=== PATIENT | male | born 1975 ===

== ENCOUNTER 2017-07-17 19:47 | Emergency (ER) | payer SELFPAY ==
[2017-07-17 20:47] VITALS: RESP 18
[2017-07-17] MEDS ORDERED: Sodium Chloride 0.9% 1,000 ML IV ONE (20:53)
[2017-07-17 21:08] LABS: CHLORIDE 101 mmol/L (98-107); POTASSIUM 3.8 mmol/L (3.6-5.2); SODIUM 139 mmol/L (132-148)
[2017-07-17 21:10] LABS: GFR AFRICAN-AMERICAN > 60
[2017-07-17 21:11] LABS: ALB/GLOB RATIO 1.3 (1.0-2.1); ALKALINE PHOSPHATASE 99 U/L (38-126); ALT/SGPT 41 U/L (21-72); AST/SGOT 20 U/L (17-59); BLOOD UREA NITROGEN 13 mg/dL (9-20); CALCIUM 8.9 mg/dl (8.6-10.4); CARBON DIOXIDE 26 mmol/L (22-30); GLUCOSE,RANDOM 83 mg/dL (75-110); TOTAL PROTEIN 7.2 g/dL (6.3-8.3)
[2017-07-17 21:13] LABS: BASO % 0.3 % (0.0-2.0); EOS # 0.1 K/uL (0.0-0.7); EOS % 0.6 % (0.0-4.0); LYMPH # 1.4 K/uL (1.0-4.3); LYMPH % 9.6 % (20.0-40.0); MEAN CELL VOLUME 85.8 fL (80.0-94.0); MEAN CORPUSCULAR HEMOGLOBIN 29.2 pg (27.0-31.0); MEAN PLATELET VOLUME 8.1 fL (7.2-11.7); MONO # 0.9 K/uL (0.0-0.8); PLATELET COUNT 228 K/uL (130-400); RED CELL DISTRIBUTION WIDTH 12.6 % (11.5-14.5); WHITE BLOOD COUNT 14.3 K/uL (4.8-10.8)
--- NOTE | 2017-07-17 21:37 | C.PDOC ---
History Of Present Illness Patient presents with complaints of intermittent left lower quadrant pain described as sharp and stabbing that has worsened today. Patient states pain is non-radiating and denies nausea, vomiting, diarrhea, fever, or chills. Time Seen by Provider: 07/17/17 21:12 Chief Complaint (Nursing): Abdominal Pain History Per: Patient History/Exam Limitations: no limitations Onset/Duration Of Symptoms: Intermittent Episodes, Worse Since (today) Current Symptoms Are (Timing): Still Present Severity: Moderate Pain Scale Rating Of: 4 Location Of Pain/Discomfort: LLQ Radiation Of Pain To:: None Quality Of Discomfort: Sharp, Stabbing, "Pain" Associated Symptoms: denies: Fever, Chills, Nausea, Vomiting, Diarrhea Exacerbating Factors: None Alleviating Factors: None Last Bowel Movement: Yesterday Recent travel outside of the [place]: No Additional History Per: Patient Past Medical History Reviewed: Historical Data, Nursing Documentation, Vital Signs Vital Signs: Last Vital Signs Temp 98.5 F 07/17/17 20:45 Pulse 75 07/17/17 21:50 Resp 18 07/17/17 21:50 BP 116/75 07/17/17 21:50 Pulse Ox 99 07/17/17 21:50 Family History: States: Unknown Family Hx - Social History Hx Alcohol Use: Yes Hx Substance Use: No Review Of Systems Constitutional: Negative for: Fever, Chills Cardiovascular: Negative for: Chest Pain, Palpitations Respiratory: Negative for: Shortness of Breath Gastrointestinal: Positive for: Abdominal Pain (LLQ pain ). Negative for: Nausea, Vomiting, Diarrhea Musculoskeletal: Negative for: Back Pain Skin: Negative for: Rash Neurological: Negative for: Weakness Psych: Negative for: Anxiety Physical Exam - Physical Exam Appears: Non-toxic, No Acute Distress Skin: Warm, Dry Head: Normacephalic Eye(s): bilateral: Normal Inspection Oral Mucosa: Moist Neck: Trachea Midline, Supple Chest: Symmetrical, No Deformity Cardiovascular: Rhythm Regular Respiratory: No Rales, No Rhonchi, No Wheezing Gastrointestinal/Abdominal: Soft, Tenderness (LLQ tenderness ), No Distention, No Guarding, No Rebound Back: No CVA Tenderness Extremity: No Tenderness Extremity: Bilateral: Atraumatic, Normal Color And Temperature, Normal ROM Pulses: Left Dorsalis Pedis: Normal, Right Dorsalis Pedis: Normal Neurological/Psych: Oriented x3, Normal Speech, Normal Cognition Gait: Steady ED Course And Treatment - Laboratory Results Result Diagrams: 07/17/17 20:57 07/17/17 20:57 O2 Sat by Pulse Oximetry: 99 (room air ) Pulse Ox Interpretation: Normal Medical Decision Making Medical Decision Making: Upon provider reevaluation patient is feeling better, is medically stable, and requires no further treatment in the ED at this time. Patient will be discharged home with Rx for flagyl and cipro. Counseling was provided and all questions were answered regarding diagnosis and need for follow up with the referred clinic. There is agreement to discharge plan. Return if symptoms persist or worsen. Disposition Counseled Patient/Family Regarding: Studies Performed, Diagnosis, Need For Followup, Rx Given - Disposition Referrals: [facility] [Outside] [facility] [Outside] Ivan Braun MD [Staff Provider] - Disposition: HOME/ ROUTINE Disposition Time: 23:23 Condition: FAIR Prescriptions: Ciprofloxacin [Cipro] 1 tab PO BID #14 tab Metronidazole [Flagyl] 500 mg PO TID #21 tablet Instructions: Diverticulitis (DC) Forms: [employer] ([place] Islander) Print Language: TURKMEN - Clinical Impression Clinical Impression: Abdominal pain, Acute diverticulitis - Scribe Statement The provider has reviewed the documentation as recorded by the Scribrahel Murrell All medical record entries made by the Shantelibrahel were at my direction and personally dictated by me. I have reviewed the chart and agree that the record accurately reflects my personal performance of the history, physical exam, medical decision making, and the department course for this patient. I have also personally directed, reviewed, and agree with the discharge instructions and disposition.
[2017-07-17 21:43] LABS: NEUTROPHIL 84 % (50-75); TOTAL CELLS COUNTED 100
[2017-07-17 22:03] LABS: RBC URINE 2 /hpf (0-3); URINE BILIRUBIN NEGATIVE (NEGATIVE); URINE BLOOD NEGATIVE (NEGATIVE); URINE COLOR Yellow (YELLOW); URINE GLUCOSE (UA) NORMAL (Normal); URINE KETONE NEGATIVE (NEGATIVE); URINE LEUKOCYTE ESTERASE NEG Leu/uL (Negative); URINE PROTEIN NEGATIVE (NEGATIVE); URINE UROBILINOGEN NORMAL mg/dL (0.2-1.0); WBC URINE < 1 /hpf (0-5)
[2017-07-17] MEDS ORDERED: Iohexol 350mg/ml 100 ML ONE (22:08)
--- NOTE | 2017-07-17 23:10 | CT ---
EXAM: CT Abdomen and Pelvis With Intravenous Contrast CLINICAL HISTORY: 41 years old, male; Pain; Abdominal pain; Flank; Left lower quadrant (llq); Additional info: Llq pain TECHNIQUE: Axial computed tomography images of the abdomen and pelvis with intravenous contrast. All CT scans at this facility use one or more dose reduction techniques, viz.: automated exposure control; ma/kV adjustment per patient size (including targeted exams where dose is matched to indication; i.e. head); or iterative reconstruction technique. Coronal and sagittal reformatted images were created and reviewed. CONTRAST: 100 mL of OMNIPAQUE 350 administered intravenously. COMPARISON: No relevant prior studies available. FINDINGS: Lower thorax: No acute findings. ABDOMEN: Liver: Unremarkable. No mass. Gallbladder and bile ducts: No calcified stones. No ductal dilation. Pancreas: 1.0 x 0.8 x 0.7 cm hypodense lesion within pancreas. No ductal dilation. Spleen: No splenomegaly. Adrenals: No mass. Kidneys and ureters: 0.9 x 1.2 x 0.9 cm lesion within LEFT kidney, indeterminate by CT criteria. No hydronephrosis. Stomach and bowel: Scattered diverticula within colon. Mild mural thickening short segment of distal descending colon. Mild stranding within adjacent fat. No obstruction. Appendix: Normal caliber. No inflammation. PELVIS: Bladder: Unremarkable. Reproductive: Unremarkable as visualized. ABDOMEN and PELVIS: Intraperitoneal space: No significant fluid collection. No free air. Bones/joints: No acute fracture. Soft tissues: Probable small lipoma RIGHT posterolateral thigh. Tiny umbilical hernia containing fat. Tiny RIGHT inguinal hernia containing fat. Vasculature: Unremarkable. No aneurysm. Lymph nodes: No pathologically enlarged lymph nodes. Other findings: Small calcification anterior to liver. IMPRESSION: 1. Findings compatible with acute diverticulitis. Recommend endoscopy following resolution. 2. Kidney lesion, indeterminate. Recommend nonemergent ultrasound or MRI. 3. Pancreatic lesion, indeterminate. Recommend MRI for further characterization. 4. Incidental/non-acute findings are described above.
[2017-07-17] MEDS ORDERED: Ciprofloxacin 400mg/200ml D5W 400 MG/200 ML BAG IVPB STA (23:17)
[2017-07-17] MEDS ORDERED: metroNIDAZOLE IV 500 mg/100 ml 500 MG/100 ML BAG ONE (23:29)
[2017-07-17] MEDS ORDERED: Ciprofloxacin 400mg/200ml D5W 400 MG/200 ML BAG IVPB ONE (23:29)
[2017-07-17] MEDS ORDERED: metroNIDAZOLE IV 500 mg/100 ml 500 MG/100 ML BAG IVPB SCH (23:30)
[2017-07-18 00:34] VITALS: BP 120/70; PULSE 77; TEMP 98; O2SAT 100
== END 2017-07-18 01:02 | disposition home or self-care (01) ==
LOC: C.ER 19:47 → SUPCPDRO 19:47 → C.ER 07-18 01:02
DX: K57.32 Diverticulitis of large intestine without perforation or abscess without bleeding (principal)
CPT/HCPCS: 74177; 80053; 81001; 83690; 85025; 96361; 96365; 96375; 99285; J0744; J1885; J7040; Q9967

== ENCOUNTER 2018-04-04 09:42 | Emergency (ER) | payer OTHER ==
[2018-04-04 09:58] VITALS: O2SAT 99
--- NOTE | 2018-04-04 11:21 | C.PDOC ---
History Of Present Illness 42 year old male presents to the ED for evaluation of right-sided testicular pain and swelling which began 2 days ago. Patient denies fever, chills, dysuria , hematuria, abdominal pain, trauma/injury to the area, or surgical history. Time Seen by Provider: 04/04/18 10:00 Chief Complaint (Nursing): Male Genitourinary History Per: Patient History/Exam Limitations: no limitations Onset/Duration Of Symptoms: Days (2) Current Symptoms Are (Timing): Still Present Quality Of Discomfort: "Pain" Associated Symptoms: denies: Urinary Symptoms Additional History Per: Patient Past Medical History Reviewed: Historical Data, Nursing Documentation, Vital Signs Vital Signs: Last Vital Signs Temp 97.7 F 04/04/18 13:40 Pulse 64 04/04/18 13:40 Resp 16 04/04/18 13:40 BP 116/77 04/04/18 13:40 Pulse Ox 99 04/04/18 13:43 - Medical History PMH: No Chronic Diseases Surgical History: No Surg Hx Family History: States: Unknown Family Hx - Social History Hx Alcohol Use: Yes Hx Substance Use: No - Immunization History Hx Tetanus Toxoid Vaccination: No Hx Influenza Vaccination: No Hx Pneumococcal Vaccination: No Review Of Systems Constitutional: Negative for: Fever, Chills Gastrointestinal: Negative for: Abdominal Pain Genitourinary: Positive for: Other (right-sided testicular pain ). Negative for : Dysuria, Hematuria Physical Exam - Physical Exam Appears: Non-toxic, No Acute Distress Skin: Normal Color, Warm, Dry Head: Atraumatic, Normacephalic Eye(s): bilateral: Normal Inspection Oral Mucosa: Moist Neck: Supple Chest: Symmetrical, No Deformity, No Tenderness Gastrointestinal/Abdominal: Soft, No Tenderness, No Guarding, No Rebound, No Hernia Male Genital: Testicular Tenderness (mild, right-sided), Testicular Swelling ( mild, right-sided), No Inguinal Tenderness, No Other (fluctuance ) Extremity: Normal ROM, Capillary Refill (less than 2 seconds ) Neurological/Psych: Oriented x3, Normal Speech, Normal Cognition ED Course And Treatment O2 Sat by Pulse Oximetry: 99 (on RA) Pulse Ox Interpretation: Normal Medical Decision Making Medical Decision Making: Diff/Dx: Epididymitis, testicular torsion, varicocele, hydrocele. Progress: Urinalysis and Testicular Ultrasound ordered. Patient given Tylenol PO. The Ultrasound shows signs of epididymitits. Patient treated with Rocephin and Zithromax. Patient reports he only has scant rash for PCN, agrees to taking Rocephin. Cipro Rx given. Disposition - Disposition Referrals: [facility] [Outside] Disposition: HOME/ ROUTINE Disposition Time: 13:39 Condition: GOOD Additional Instructions: Follow up with the medical doctor within 1-2 days. Return if worsened. Prescriptions: Ciprofloxacin HCl [Cipro] 500 mg PO BID #20 tab Ibuprofen [Motrin] 600 mg PO TID #21 tab Instructions: Epididymitis (DC) Forms: [employer] ([place]ian) Print Language: LAO - Clinical Impression Clinical Impression: Epididymitis - PA / PAGINATOR / Resident Statement MD/DO has reviewed & agrees with the documentation as recorded. - Scribe Statement The provider has reviewed the documentation as recorded by the Scribe (Theodora Guo) All medical record entries made by the Scribe were at my direction and personally dictated by me. I have reviewed the chart and agree that the record accurately reflects my personal performance of the history, physical exam, medical decision making, and the department course for this patient. I have also personally directed, reviewed, and agree with the discharge instructions and disposition.
[2018-04-04 11:45] LABS: URINE BILIRUBIN NEGATIVE (NEGATIVE); URINE BLOOD 1+ (NEGATIVE); URINE CLARITY Clear (Clear); URINE COLOR Yellow (YELLOW); URINE GLUCOSE (UA) NORMAL (Normal); URINE LEUKOCYTE ESTERASE NEG Leu/uL (Negative); URINE PROTEIN NEGATIVE (NEGATIVE)
--- NOTE | 2018-04-04 12:27 | US ---
HISTORY: R sided testicular pain and swelling TECHNIQUE: Realtime sonography through the scrotum with color and doppler flow. COMPARISON: None Available. FINDINGS: RIGHT TESTICLE: Measures 3.4 x 2.5 x 3.0 cm. Normal echotexture and flow. RIGHT EPIDIDYMIS: Epididymal head is enlarged measuring approximately 5.2 x 2.6 x 3.5 cm . Grossly unremarkable appearance with increased flow. LEFT TESTICLE: Measures 3.9 x 2.1 x 3.2 cm. Normal echotexture and flow. LEFT EPIDIDYMIS: Epididymal head measures 1.2 x 0.79 x 1.3 cm grossly unremarkable appearance with normal flow. HYDROCELE: None. VARICOCELE: None. OTHER FINDINGS: None. IMPRESSION: Markedly enlarged right epididymis with increased flow consistent with epididymitis
[2018-04-04] MEDS ORDERED: cefTRIAXone 250 MG, Lidocaine Hydrochloride 1% 1 ML IM ONE (12:59)
[2018-04-04 13:47] VITALS: BP 116/77; PULSE 64; RESP 16; TEMP 97.7
== END 2018-04-04 14:15 | disposition home or self-care (01) ==
LOC: C.ER 09:42
DX: N45.1 Epididymitis (principal)
CPT/HCPCS: 76870; 81001; 87086; 96372; 99284; J0696